=== PATIENT | male | born 1995 | race Caucasian/White ===

== ENCOUNTER 2016-09-18 16:10 | Emergency (ER) | payer BC ==
[2016-09-19 13:08] LABS: INR 1.2 (0.9-1.2); PARTIAL THROMBOPLASTIN TIME 31.6 Seconds (25.6-37.1); PROTHROMBIN TIME 13.3 Seconds (9.8-13.1)
[2016-09-19 13:11] LABS: BASO % 0.4 % (0.0-2.0); EOS % 0.2 % (0.0-4.0); HEMOGLOBIN 16.2 g/dL (12.0-18.0); LYMPH # 1.2 K/uL (1.0-4.3); LYMPH % 16.1 % (20.0-40.0); MEAN CORPUSCULAR HEMOGLOBIN 29.6 pg (27.0-31.0); MEAN CORPUSCULAR HGB CONC 33.6 g/dL (33.0-37.0); MEAN PLATELET VOLUME 8.2 fl (7.2-11.7); MONO # 0.5 K/uL (0.0-0.8); MONO % 7.1 % (0.0-10.0); NEUT # 5.6 K/uL (1.8-7.0); NEUT % 76.2 % (50.0-75.0); NRBC % 0.4 % (0.0-0.0); RBC 5.48 Mil/uL (4.40-5.90); RED CELL DISTRIBUTION WIDTH 13.2 % (11.5-14.5); WHITE BLOOD COUNT 7.4 K/uL (4.8-10.8)
[2016-09-19 13:28] LABS: BARBITURATES, UR NEGATIVE (NEGATIVE); BENZODIAZEPINES, UR NEGATIVE (NEGATIVE); OPIATES, UR NEGATIVE (NEGATIVE); PHENCYCLIDINE, UR NEGATIVE (NEGATIVE)
[2016-09-19 13:34] LABS: BLOOD UREA NITROGEN 12 mg/dl (9-20); CALCIUM 9.8 mg/dL (8.4-10.2); GFR AFRICAN-AMERICAN > 60; GFR NON-AFRICAN AMERICAN > 60
[2016-09-19 13:37] LABS: ALB/GLOB RATIO 1.8 (1.0-2.1); ALT/SGPT 30 U/L (21-72); AST/SGOT 25 U/L (17-59); LIPASE 31 U/L (23-300)
[2016-09-19 13:39] LABS: ALBUMIN 5.1 g/dL (3.5-5.0)
[2016-09-22 19:33] VITALS: BMI 22.1
--- NOTE | 2016-09-23 06:48 | CARD ---
APPROVED REPORT EKG Measurement Heart [id number] VT [id number] <Conclusion> Normal sinus rhythm Normal ECG
== END 2016-09-18 21:28 | disposition home or self-care (01) ==
LOC: H.ER 16:10
DX: R56.9 Unspecified convulsions (principal)
CPT/HCPCS: 80053; 82550; 83690; 83735; 84100; 85025; 85610; 85730; 99284; G0480